=== PATIENT | male | born 1950 | race Caucasian/White ===

== ENCOUNTER 2021-01-13 01:55 | Emergency (ER) | payer OTHER, MEDICARE ==
[~2021-01-13] VITALS: Ht 172 cm; Wt 91.0 kg
[2021-01-13] MEDS ORDERED: ONDANSETRON 4 MG/2 ML (SDV) Z0FRAN IVP ONE (02:15)
[2021-01-13] MEDS ORDERED: HYDROmorphone 2 MG/ML VIAL (DILAUDID) IV ONE ×2 (02:15→04:30)
--- NOTE | 2021-01-13 02:23 | ED General ---
General Stated Complaint: ABDOMINAL PAIN Source of Information: Patient Exam Limitations: No Limitations History of Present Illness Date Seen by Provider: Jan 13, 2021 Time Seen by Provider: 02:10 Initial Comments Patient is a 70-year-old male with history of kidney stones who presents with acute onset right lower quadrant pain with nausea and vomiting starting approximately 90 minutes prior to ED arrival. Pain is described as aching, severe and unrelenting. It is 10 out of 10 worse with palpation and movement. Patient is unable to find position of comfort. Pain is nonradiating. It is associate with nausea and vomiting x2. No fever chills, sweats. No chest pain back pain. Patient did take Tums without relief of symptoms. No testicular pain tenderness or swelling. No urinary frequency urgency dysuria or hematuria. No other acute symptoms or complaints. Timing/Duration: 1-3 Hours Severity: Severe Modifying Factors: improves with Other Associated Systoms: Other Allergies and Home Medications Allergies Coded Allergies: No Known Allergies (Verified Allergy, Unknown, 01/13/21) Patient Home Medication List Home Medication List Reviewed: Yes Review of Systems Review of Systems Constitutional: see HPI EENTM: see HPI Respiratory: see HPI Cardiovascular: see HPI Genitourinary: see HPI Musculoskeletal: see HPI Skin: see HPI Psychiatric/Neurological: See HPI Hematologic/Lymphatic: See HPI Immunological/Allergic: see HPI Past Iqtloym-Bphsgd-Rqujer Hx Patient Social History Tobacco Use?: No Physical Exam Vital Signs Vital Signs - First Documented 01/13/21 01:55 Temp 36.8 Pulse 99 Resp 20 B/P (MAP) 165/105 (125) Pulse Ox 98 O2 Delivery Room Air Capillary Refill : Height, Weight, BMI Height: '" Weight: lbs. oz. kg; BMI Method: General Appearance: Severe Distress (Secondary to pain) Eyes: Bilateral Eye Normal Inspection, Bilateral Eye PERRL, Bilateral Eye EOMI HEENT: PERRL/EOMI, Normal ENT Inspection, Pharynx Normal, Moist Mucous Membranes Neck: Non Tender, Supple Respiratory: Lungs Clear, Normal Breath Sounds Cardiovascular: Regular Rate, Rhythm Gastrointestinal: Soft, Guarding, Tenderness Back: Normal Inspection, No CVA Tenderness Extremity: Normal Capillary Refill Neurologic/Psychiatric: Alert, Oriented x3 Skin: Normal Color Focused Exam Sepsis Stage: Ruled Out Lactate Level 01/13/21 02:10: Lactic Acid Level 1.44 Lactic Acid Level Laboratory Tests Test 01/13/21 02:10 Lactic Acid Level 1.44 MMOL/L (0.50-2.00) Progress/Results/Core Measures Suspected Sepsis SIRS Temperature: Pulse: Respiratory Rate: Laboratory Tests 01/13/21 02:10: White Blood Count 9.8 Blood Pressure / Mean: 01/13/21 02:10: Lactic Acid Level 1.44 Laboratory Tests 01/13/21 02:10: Creatinine 0.91, INR Comment 1.0, Platelet Count 243, Total Bilirubin 0.5 Results/Orders Lab Results Laboratory Tests Test 01/13/21 02:10 01/13/21 02:55 Range/Units White Blood Count 9.8 4.3-11.0 10^3/uL Red Blood Count 5.46 4.30-5.52 10^6/uL Hemoglobin 15.4 13.3-17.7 g/dL Hematocrit 47 40-54 % Mean Corpuscular Volume 86 80-99 fL Mean Corpuscular Hemoglobin 28 25-34 pg Mean Corpuscular Hemoglobin Concent 33 32-36 g/dL Red Cell Distribution Width 14.5 10.0-14.5 % Platelet Count 243 130-400 10^3/uL Mean Platelet Volume 10.3 9.0-12.2 fL Immature Granulocyte % (Auto) 1 % Neutrophils (%) (Auto) 77 H 42-75 % Lymphocytes (%) (Auto) 14 12-44 % Monocytes (%) (Auto) 7 0-12 % Eosinophils (%) (Auto) 2 0-10 % Basophils (%) (Auto) 1 0-10 % Neutrophils # (Auto) 7.5 1.8-7.8 X 10^3 Lymphocytes # (Auto) 1.4 1.0-4.0 X 10^3 Monocytes # (Auto) 0.7 0.0-1.0 X 10^3 Eosinophils # (Auto) 0.2 0.0-0.3 10^3/uL Basophils # (Auto) 0.1 0.0-0.1 10^3/uL Immature Granulocyte # (Auto) 0.1 0.0-0.1 10^3/uL Prothrombin Time 13.5 12.2-14.7 SEC INR Comment 1.0 0.8-1.4 Activated Partial Thromboplast Time 33 24-35 SEC Sodium Level 140 135-145 MMOL/L Potassium Level 4.0 3.6-5.0 MMOL/L Chloride Level 105 98-107 MMOL/L Carbon Dioxide Level 20 L 21-32 MMOL/L Anion Gap 15 H 5-14 MMOL/L Blood Urea Nitrogen 26 H 7-18 MG/DL Creatinine 0.91 0.60-1.30 MG/DL Estimat Glomerular Filtration Rate 82 BUN/Creatinine Ratio 29 Glucose Level 143 H 70-105 MG/DL Lactic Acid Level 1.44 0.50-2.00 MMOL/L Calcium Level 9.6 8.5-10.1 MG/DL Corrected Calcium 9.4 8.5-10.1 MG/DL Total Bilirubin 0.5 0.1-1.0 MG/DL Aspartate Amino Transf (AST/SGOT) 19 5-34 U/L Alanine Aminotransferase (ALT/SGPT) 14 0-55 U/L Alkaline Phosphatase 105 40-136 U/L Total Protein 7.7 6.4-8.2 GM/DL Albumin 4.3 3.2-4.5 GM/DL Urine Color YELLOW Urine Clarity SL CLOUDY Urine pH 5.0 5-9 Urine Specific [place] >=1.030 1.016-1.022 Urine Protein TRACE H NEGATIVE Urine Glucose (UA) NEGATIVE NEGATIVE Urine Ketones TRACE H NEGATIVE Urine Nitrite NEGATIVE NEGATIVE Urine Bilirubin NEGATIVE NEGATIVE Urine Urobilinogen 0.2 < = 1.0 MG/DL Urine Leukocyte Esterase NEGATIVE NEGATIVE Urine RBC (Auto) 3+ H NEGATIVE Urine RBC 50-100 H /HPF Urine WBC RARE /HPF Urine Squamous Epithelial Cells NONE /HPF Urine Crystals PRESENT H /LPF Urine Calcium Oxalate Crystals MODERATE H /LPF Urine Bacteria NEGATIVE /HPF Urine Casts PRESENT /LPF Urine Hyaline Casts RARE /LPF Urine Mucus LARGE H /LPF Urine Culture Indicated NO My Orders Orders - GABY SANDS DO Cbc With Automated Diff (01/13/21 02:06) Comprehensive Metabolic Panel (01/13/21 02:06) Blood Culture (01/13/21 02:06) Sputum Culture (01/13/21 02:06) Urinalysis (01/13/21 02:06) Urine Culture (01/13/21 02:06) Protime With Inr (01/13/21 02:06) Partial Thromboplastin Time (01/13/21 02:06) Chest 1 View Ap/Pa Only (01/13/21 02:06) Ed Iv/Invasive Line Start (01/13/21 02:06) Ed Iv/Invasive Line Start (01/13/21 02:06) Vital Signs Adult Sepsis Patie Q15M (01/13/21 02:06) O2 (01/13/21 02:06) Remove Rings In Anticipation O (01/13/21 02:06) Lactic Acid Analyzer (01/13/21 02:06) Ekg-Prn For Chest Pain Or Rhyt (01/13/21 02:06) Ct Abdomen/Pelvis W (01/13/21 02:06) Hydromorphone Injection (Dilaudid Inject (01/13/21 02:15) Ondansetron Injection (Zofran Injectio (01/13/21 02:15) Iohexol Injection (Omnipaque 350 Mg/Ml 1 (01/13/21 03:15) Received Contrast (Hold Metformin- Contr (01/13/21 03:15) Ns (Ivpb) (Sodium Chloride 0.9% Ivpb Bag (01/13/21 03:15) Ketorolac Injection (Toradol Injection) (01/13/21 04:15) Medications Given in ED Current Medications Medications Dose Ordered Sig/Eris Route Start Time Stop Time Status Last Admin Dose Admin Hydromorphone HCl 1 mg ONCE ONCE IV 01/13/21 02:15 01/13/21 02:16 DC 01/13/21 02:20 1 MG Iohexol 100 ml ONCE ONCE IV 01/13/21 03:15 01/13/21 03:16 DC 01/13/21 03:23 100 ML Ondansetron HCl 4 mg ONCE ONCE IVP 01/13/21 02:15 01/13/21 02:16 DC 01/13/21 02:20 4 MG Sodium Chloride 100 ml ONCE ONCE IV 01/13/21 03:15 01/13/21 03:16 DC 01/13/21 03:24 80 ML Vital Signs/I&O 01/13/21 01/13/21 01:55 02:30 Temp 36.8 Pulse 99 81 Resp 20 16 B/P (MAP) 165/105 (125) 157/77 Pulse Ox 98 96 O2 Delivery Room Air Room Air Capillary Refill : Departure Communication (Admissions) CT abdomen pelvis:: 3 mm mid ureter right ureteral stone Patient with acute flank pain with kidney stone finding on CT scan. Please refer to department. Lab work otherwise reassuring. Will treat supportively with PCP/urology follow-up. Return precautions reviewed. Patient verbalizes understanding agreement with discharge instructions prior to departure. Impression Primary Impression: Right lower quadrant pain Additional Impression: Ureteral calculus, right Disposition: 01 HOME, SELF-CARE Condition: Stable Departure-Patient Inst. Decision time for Depature: 04:16 Referrals: SPIKE DAVIS MD (PCP/Family) Primary Care Physician Patient Instructions: Kidney Stones (DC) Add. Discharge Instructions: You were evaluated in the emergency department for right flank pain. Lab and CT were performed and reveal a 3 mm stone located in your right mid ureter. Please increase fluids and take newly prescribed medications as directed and follow-up with your PCP and on-call urologist. Return to the ED if new or worsening symptoms Scripts Ondansetron (Ondansetron Odt) 4 Mg Tab.rapdis 4 MG PO Q6H, #10 TAB Prov: GABY SANDS DO 01/13/21 Oxycodone HCl/Acetaminophen (Percocet 7.5-325 mg Tablet) 1 Each Tablet 1-2 TAB PO Q6H PRN for PAIN-MODERATE MDD 4 TABS for 7 Days, #16 TAB Prov: GABY SANDS DO 01/13/21 Ketorolac Tromethamine (Ketorolac Tromethamine) 10 Mg Tablet 10 MG PO QID, #20 TAB Prov: GABY SANDS DO 01/13/21 GABY SANDS DO Jan 13, 2021 02:23
[2021-01-13 02:43] LABS: BASOPHILS % (AUTO) 1 % (0-10); EOSINOPHILS % (AUTO) 2 % (0-10); HEMATOCRIT 47 % (40-54); HEMOGLOBIN 15.4 g/dL (13.3-17.7); LYMPHOCYTES % (AUTO) 14 % (12-44); MEAN CORPUSCULAR HEMOGLOBIN 28 pg (25-34); MEAN CORPUSCULAR HGB CONC 33 g/dL (32-36); MEAN CORPUSCULAR VOLUME 86 fL (80-99); MEAN PLATELET VOLUME 10.3 fL (9.0-12.2); MONOCYTES % (AUTO) 7 % (0-12); NEUTROPHILS % (AUTO) 77 % (42-75); PLATELET COUNT 243 10^3/uL (130-400); WHITE BLOOD COUNT 9.8 10^3/uL (4.3-11.0)
[2021-01-13 02:44] LABS: BASOPHILS # (AUTO) 0.1 10^3/uL (0.0-0.1); EOSINOPHILS # (AUTO) 0.2 10^3/uL (0.0-0.3); LYMPHOCYTES # (AUTO) 1.4 X 10^3 (1.0-4.0); MONOCYTES # (AUTO) 0.7 X 10^3 (0.0-1.0); NEUTROPHILS # (AUTO) 7.5 X 10^3 (1.8-7.8)
[2021-01-13 02:54] LABS: PROTHROMBIN TIME PATIENT 13.5 SEC (12.2-14.7)
[2021-01-13 02:59] LABS: ALBUMIN 4.3 GM/DL (3.2-4.5); BILIRUBIN,TOTAL 0.5 MG/DL (0.1-1.0); CALCIUM 9.6 MG/DL (8.5-10.1); CREATININE SERUM 0.91 MG/DL (0.60-1.30); TOTAL PROTEIN 7.7 GM/DL (6.4-8.2)
[2021-01-13 03:06] LABS: BILIRUBIN,URINE NEGATIVE (NEGATIVE); CLARITY,URINE SL CLOUDY; COLOR,URINE YELLOW; GLUCOSE, URINE (UA) NEGATIVE (NEGATIVE); KETONES,URINE TRACE (NEGATIVE); LEUKOCYTE ESTERASE ,URINE NEGATIVE (NEGATIVE); NITRITE,URINE NEGATIVE (NEGATIVE); PROTEIN,URINE TRACE (NEGATIVE)
[2021-01-13 03:13] LABS: BACTERIA,URINE NEGATIVE /HPF; CALCIUM OXALATE CRYSTALS,UR MODERATE /LPF; RBC,URINE 50-100 /HPF; WBC,URINE RARE /HPF
[2021-01-13 03:14] LABS: HYALINE CASTS, URINE RARE /LPF
[2021-01-13] MEDS ORDERED: HOLD METFORMIN - RECEIVED CONTRAST 20 ML VIAL IV SCH (03:15)
[2021-01-13] MEDS ORDERED: NS 100 ML (IVPB) BAG IV ONE (03:15)
[2021-01-13] MEDS ORDERED: IOHEXOL 350 MG/ML 100 ML (OMNIPAQUE 350) VIAL IV ONE (03:15)
[2021-01-13] MEDS ORDERED: KETOROLAC 30 MG/ML VIAL IVP ONE (04:15)
[2021-01-13] MEDS ORDERED: OXYC1TAB16 PO (04:20)
[2021-01-13] MEDS ORDERED: ONDA4TAB11 PO (04:20)
[2021-01-13] MEDS ORDERED: KETO10TA PO (04:20)
--- NOTE | 2021-01-13 04:59 | Diagnostic Imaging Report ---
PROCEDURE: CT abdomen and pelvis with contrast. TECHNIQUE: Multiple contiguous axial images were obtained through the abdomen and pelvis after administration of intravenous contrast. Auto Exposure Controls were utilized during the CT exam to meet ALARA standards for radiation dose reduction. All CT scans use one or more of the following dose optimizing techniques: automated exposure control, MA and/or KvP adjustment based on patient size and exam type or iterative reconstruction. INDICATION: Right upper quadrant abdominal pain The lung bases are clear. The liver appears normal. The gallbladder appears normal. Pancreas appears normal. Spleen appears normal. There is a 5 mm calculus in the right proximal ureter causing mild right hydronephrosis. There are bilateral renal cysts. There is some calcific atherosclerosis of the aorta but no aneurysm. Small bowel is not dilated. Appendix is normal. There is a moderate amount of stool in the colon. Urinary bladder is decompressed. Prostate is not enlarged. IMPRESSION: Grade 1 hydronephrosis right kidney secondary to obstructing calculus in the right proximal ureter. Nondistended urinary bladder. I agree with preliminary interpretation. Dictated by: Dictated on workstation # [id number]
[2021-01-13 05:45] VITALS: BP 125/67
--- NOTE | 2021-01-13 07:11 | Diagnostic Imaging Report ---
Indication: Sepsis. FINDINGS: Portable chest. Lungs well-aerated and clear. Heart is not enlarged. No pulmonary edema or hilar adenopathy. No pneumothorax or pleural effusion. No bony abnormalities. IMPRESSION: Negative portable chest. Dictated by: Dictated on workstation # [id number]
== END 2021-01-13 05:45 | disposition home or self-care (01) ==
LOC: EDUNIT# 01:55 → ER FS 01:59
DX: N13.2 Hydronephrosis with renal and ureteral calculous obstruction (principal)
CPT/HCPCS: 36415; 71045; 74177; 80053; 81000; 83605; 85025; 85610; 85730; 87040; 87088

== ENCOUNTER → 2021-03-16 | Outpatient (CLI) | payer OTHER, MEDICARE ==
[~2021-03-16] MED LIST: ATOR10TA66 PO; KETO10TA PO; METO-333 PO; ONDA4TAB11 PO; OXYC1TAB16 PO
--- NOTE | 2021-03-16 19:10 | Diagnostic Imaging Report ---
INDICATION: Ureteral stone. TIME OF EXAM: 3:57 p.m. FINDINGS: Bowel gas pattern is unremarkable. There is a calcific density in the right hemipelvis in the region of the distal right ureter. This could conceivably represent a distal ureteric calculus. No other definite urinary tract calculi are seen. IMPRESSION: Questionable distal right ureteric calculus. The study is otherwise unremarkable. Dictated by: Dictated on workstation # [id number]
== END ==
LOC: RAD 15:16
PROVIDERS: ATTEND Urology
DX: N20.1 Calculus of ureter (principal)
CPT/HCPCS: 74018

== ENCOUNTER 2021-03-18 05:36 | Outpatient (CLI) | payer OTHER ==
[~2021-03-18] VITALS: Ht 175 cm; Wt 89.0 kg
[~2021-03-18 05:36] MED LIST changes: -ATOR10TA66 PO; -METO-333 PO
[2021-03-18] MEDS ORDERED: METO-333 PO (11:11)
[2021-03-18] MEDS ORDERED: ATOR10TA66 PO (11:11)
== END 2021-03-18 12:05 | disposition home or self-care (01) ==
LOC: PREOP 05:36
PROVIDERS: ATTEND Urology
DX: Z01.818 Encounter for other preprocedural examination (principal)

== ENCOUNTER 2021-03-23 05:49 | Day surgery (SDC) | payer MEDICARE, OTHER ==
[2021-03-23] VITALS (9 sets, daily range): BP systolic 94–138; BP diastolic 53–82
[~2021-03-23] VITALS: Ht 175 cm; Wt 89.0 kg
[~2021-03-23 05:49] MED LIST changes: +ATOR10TA66 PO; +METO-333 PO
[2021-03-23] MEDS ORDERED: cefTRIAXone 1 GM PRE-MIX 50 ML IV ONE (06:30)
--- NOTE | 2021-03-23 07:19 | Progress Note-Pre Operative ---
Pre-Operative Progress Note H&P Reviewed The H&P was reviewed, patient examined and no changes noted. Date Seen by Provider: Mar 23, 2021 Time Seen by Provider: 07:19 Date H&P Reviewed: Mar 23, 2021 Time H&P Reviewed: 07:19 Pre-Operative Diagnosis: RT DISTAL URETERAL STONE RICKIE WINKLER MD Mar 23, 2021 07:19
[2021-03-23] MEDS: LACTATED RINGERS 1,000 ML IV PRN ×2 (07:37→09:28)
--- NOTE | 2021-03-23 07:45 | Diagnostic Imaging Report ---
INDICATION: Nephrolithiasis, ureteral stone. TECHNIQUE: Single supine view of the abdomen 7:32 AM CORRELATION STUDY: 03/16/2021 FINDINGS: Imaging of the abdomen demonstrates the bowel gas pattern to be unremarkable and without evidence for obstruction. No significant differential air-fluid levels. No evidence for free air. Previously noted faint calcification of the right hemipelvis again demonstrated. Appears generally stable.. Advanced degenerative changes lumbar spine. IMPRESSION: 1. Faint calcification right hemipelvis again demonstrated. Possibly distal ureteral stone not completely excluded. If indicated, correlation with renal colic CT imaging recommended. Dictated by: Dictated on workstation # [id number]
[2021-03-23] MEDS ORDERED: fentaNYL INJ 100 MCG/2 ML AMP ONE (08:09)
[2021-03-23] MEDS ORDERED: ONDANSETRON 4 MG/2 ML (SDV) Z0FRAN ONE (08:09)
[2021-03-23] MEDS ORDERED: LIDOCAINE PF 2% 5 ML (XYLOCAINE) VIAL ONE (08:09)
[2021-03-23] MEDS ORDERED: proPOfol 200 MG/20 ML (DIPRIVAN) VIAL IV ONE (08:09)
--- NOTE | 2021-03-23 08:38 | Progress Note-Post Operative ---
Post-Operative Progess Note Surgeon (s)/Lien Searcher (s) Surgeon RICKIE WINKLER MD Lien Searcher: NONE Pre-Operative Diagnosis RT DISTAL URETERAL STONE Post-Operative Diagnosis SAME Procedure & Operative Findings Date of Procedure 03/23/21 Procedure Performed/Findings RT URETEROSCOPY WITH STONE BASKET Anesthesia Type GENERAL Estimated Blood Loss Estimated blood loss (mL): NONE Specimens/Packing Specimens Removed NONE Packing: NONE RICKIE WIKNLER MD Mar 23, 2021 08:38
--- NOTE | 2021-03-23 08:39 | Discharge Inst-Urology ---
Discharge Inst-Urology Reconcile Patient Problems Problems Reviewed?: Yes Final Diagnosis RT DISTAL URETERAL STONE Patient Instructions/Follow Up Plan/Assessment/Instructions Please make appointment to been seen in office in 2 weeks. Stone for analysis post seen by patient Increase oral fluids for 48 hours and then as needed. Diet and Activity as tolerated. If questions or concerns contact your physician Or seek help at emergency department. RICKIE WINKLER MD Mar 23, 2021 08:39
[2021-03-23] MEDS ORDERED: ROCURONIUM 50 MG/5 ML (ZEMURON) VIAL IV ONE (09:14)
[2021-03-23] MEDS ORDERED: GLYCOPYRROLATE 0.2 MG/ML (ROBINUL) 2 ML VIAL ONE (09:45)
[2021-03-23] MEDS ORDERED: NEOSTIGMINE 3 MG/3 ML VIAL ONE (09:45)
[2021-03-23] MEDS ORDERED: SEVOFLURANE (ULTANE) 15 ML INHAL SOLN ONE (09:45)
[2021-03-23] MEDS ORDERED: KETOROLAC 30 MG/ML VIAL ONE (09:46)
[2021-03-23] MEDS ORDERED: FUROSEMIDE 40 MG/4 ML INJ (LASIX) ONE (09:46)
[2021-03-23] MEDS ORDERED: KETO10TA PO (09:55)
[2021-03-23] MEDS ORDERED: NITR-65 PO (09:55)
[2021-03-23] MEDS ORDERED: PHEN-640 PO (09:55)
[2021-03-23] MEDS ORDERED: PHENAZOPYRIDINE 100 MG (PYRIDIUM) TABLET PO ONE (10:45)
--- NOTE | 2021-03-23 10:55 | Anesthesia-General Post-Op ---
General Patient Condition Mental Status/LOC: Same as Preop Cardiovascular: Satisfactory Nausea/Vomiting: Absent Respiratory: Satisfactory Pain: Controlled Complications: Absent Post Op Complications Complications None Follow Up Care/Instructions Patient Instructions None needed. Anesthesia/Patient Condition Patient Condition Patient is doing well, no complaints, stable vital signs, no apparent adverse anesthesia problems. No complications reported per nursing. GLEN GARCIA CRNA Mar 23, 2021 10:55
--- NOTE | 2021-03-23 16:18 | OPERATIVE REPORT ---
DATE OF SERVICE: 03/23/2021 PREOPERATIVE DIAGNOSIS: Right distal ureteral stone. POSTOPERATIVE DIAGNOSIS: Right distal ureteral stone. OPERATION PERFORMED: Right ureteroscopy with stone basket. SURGEON: Dami Winkler MD ANESTHESIA: General. COMPLICATIONS: None. DESCRIPTION OF PROCEDURE: Under satisfactory general anesthesia, the patient in lithotomy position, genitalia were prepped and draped in the usual sterile fashion. Cystoscope was introduced under vision. The anterior urethra was normal. The prostate revealed enlargement of the lateral lobe and median bar/median lobe causing bladder neck obstruction. The bladder was entered, revealed trabeculation and cellules. The orifices were normal except with sluggish efflux on the right side. Using the foroblique lens, I dilated the right ureteral orifice intramural portion to the level of the stone, which felt disimpacted at that time. I removed the cystoscope and introduced a 6.9 Hungarian semi-rigid ureteroscope, visualized the stone that was floating, so I elected to basket it with a Rose basket 3-Hungarian and engaged it and extracted it completely and went back with the cystoscope to empty the bladder. The patient tolerated the procedure and anesthesia well and was sent to recovery room in stable condition. Job ID: [id number] DocumentID: [id number] Dictated Date: 03/23/2021 09:55:45 Animal Pathologist Date: 03/23/2021 16:18:28 Dictated By: DAMI WINKLER MD
== END 2021-03-23 11:35 | disposition home or self-care (01) ==
LOC: SDC 05:49
PROVIDERS: ATTEND Urology
DX: N20.1 Calculus of ureter (principal); N40.1 Benign prostatic hyperplasia with lower urinary tract symptoms; N13.8 Other obstructive and reflux uropathy; I10 Essential (primary) hypertension; Z79.899 Other long term (current) drug therapy
CPT/HCPCS: 74018; 76000; 87081